=== PATIENT | female | born 2000 | race Caucasian/White ===

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

== ENCOUNTER → 2021-04-29 | Outpatient (CLI) | payer BC ==
[~2021-04-29] MED LIST: Zofran4 MG PO
[2021-04-29 18:34] LABS: BASOPHILS ABSOLUTE AUTO 0.04 K/mm3 (0.00-0.23); BASOPHILS PERCENT AUTO 1 % (0-2); EOSINOPHILS ABSOLUTE AUTO 0.06 K/mm3 (0.00-0.68); EOSINOPHILS PERCENT AUTO 1 % (0-6); Hematocrit 38.1 % (33.0-51.0); IMMATURE GRAN ABSOLUTE AUTO 0.01 K/mm3 (0.00-0.10); IMMATURE GRAN PERCENT AUTO 0 % (0-1); LYMPHOCYTES ABSOLUTE AUTO 2.14 K/mm3 (0.84-5.20); LYMPHOCYTES PERCENT AUTO 39 % (21-46); MONOCYTES ABSOLUTE AUTO 0.48 K/mm3 (0.16-1.47); MONOCYTES PERCENT AUTO 9 % (4-13); Mean Corpuscular HGB 31.6 pg (26.0-34.0); Mean Corpuscular HGB Conc 34.1 g/dL (31.5-36.5); Mean Corpuscular Volume 93 fL (80-100); Mean Platelet Volume 9.6 fL (9.1-12.4); NEUTROPHILS ABSOLUTE AUTO 2.75 K/mm3 (1.96-9.15); NEUTROPHILS PERCENT AUTO 50 % (41-73); Platelet Count 231 K/mm3 (150-400); RDW Coefficient Variation 12.1 % (11.7-14.2); RDW Standard Deviation 41.3 fL (35.1-46.3); Red Blood Cell Count 4.12 M/mm3 (3.80-5.20); White Blood Cell Count 5.48 K/mm3 (4.00-11.30)
[2021-04-29 18:57] LABS: Alanine Aminotransfer (ALT/SGP 55 U/L (12-78); Albumin/Globulin Ratio 1.1 (0.8-1.8); Alk Phos 100 U/L (50-136); Anion Gap 5 mmol/L (6-16); Aspartate Aminotrans (AST/SGOT 25 U/L (12-37); Bilirubin, Total 0.5 mg/dL (0.1-1.0); Blood Urea Nitrogen 12 mg/dL (8-24); Bun/Creatinine Ratio 17.3 (12.0-20.0); CO2, Blood 28 mmol/L (21-32); Calcium, Blood 9.1 mg/dL (8.5-10.1); Chloride, Blood 106 mmol/L (98-108); Creatinine, Blood 0.69 mg/dL (0.40-1.00); Globulin, Blood 3.5 g/dL (2.2-4.0); Glomerular Filtration Rate >60 (60-); Glucose, Blood 85 mg/dL (70-99); Potassium, Blood 3.6 mmol/L (3.5-5.5); Sodium, Blood 139 mmol/L (136-145); Total Protein, Blood 7.5 g/dL (6.4-8.2)
== END ==
LOC: LAB SHORT 17:37
PROVIDERS: Physician Assistant
DX: R11.0 Nausea (principal)
CPT/HCPCS: 80053; 84443; 85025; 87086

== ENCOUNTER → 2025-01-17 | Outpatient (CLI) | payer BC | LOC: LAB SHORT 17:55 → LAB 17:55 | DX: R30.0 Dysuria (principal) | CPT/HCPCS: 87086 ==

== ENCOUNTER 2025-02-03 10:55 | Day surgery (SDC) | payer BC ==
[~2025-02-03] VITALS: Ht 167.6 cm; Wt 63.0 kg
[2025-02-03] MEDS ORDERED: Lidocaine 1%-Epineph 1:200000 30 ML SDV ONE (11:03)
[2025-02-03] MEDS ORDERED: Triamcinolone Inj Susp 40 MG / ML 1ML Vial ONE (11:06)
[2025-02-03] MEDS ORDERED: THERA-D2000 UNIT PO (11:27)
[2025-02-03] MEDS ORDERED: Ondansetron HCl 2 MG / ML 2ML Vial ONE ×3 (11:47→14:43)
[2025-02-03] MEDS ORDERED: FentaNYL Citrate 50 MCG/ML 2 ML Injection ONE ×2 (11:47→12:55)
[2025-02-03] MEDS ORDERED: Dexamethasone Sod Phos 10 MG/ML 1ML VIAL ONE ×2 (11:47→11:51)
[2025-02-03] MEDS ORDERED: Sugammadex Sodium 200 MG/2ML SDV (100 MG/ML) ONE (11:47)
[2025-02-03] MEDS ORDERED: Midazolam HCl 1MG / ML 2ML Vial ONE (11:47)
[2025-02-03] MEDS ORDERED: Rocuronium Bromide 10 MG/ML 5ML Injection IV ONE (11:47)
[2025-02-03 14:56] VITALS: BP 131/66
--- NOTE | 2025-02-03 14:57 | NUR ---
02/03/25 1900 Elizabeth Young PT ASSISTED TO RECLINER BY RN. BURNETT. PT HAD EMESIS 50ML X2. WARM BLANKETS PROVIDED, CALL LIGHT IN REACH.
[2025-02-03] MEDS ORDERED: Metoclopramide HCl 5MG / ML 2ML Vial ONE (15:15)
== END 2025-02-03 15:50 | disposition home or self-care (01) ==
LOC: ORSCSDS 10:55
PROVIDERS: Otolaryngology
PROC: 09U807Z Supplement Left Tympanic Membrane with Autologous Tissue Substitute, Open Approach (ICD-10-PCS; principal; 2025-02-03 13:15)
DX: H72.92 Unspecified perforation of tympanic membrane, left ear (principal); H90.A32 Mixed conductive and sensorineural hearing loss, unilateral, left ear with restricted hearing on the contralateral side; H90.A21 Sensorineural hearing loss, unilateral, right ear, with restricted hearing on the contralateral side
CPT/HCPCS: A9270; J0166; J1100; J2250; J2405; J2704; J2765; J3010; J3301; J7120